=== PATIENT | male | born 1990 | race Two or more races ===

== ENCOUNTER 2016-12-25 03:04 | Emergency (ER) | payer SELFPAY ==
[~2016-12-25] VITALS: Ht 182.9 cm; Wt 83.0 kg
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
--- NOTE | 2016-12-25 03:18 | NUR ---
PT TAKEN TO RADIOLOGY DEPARTMENT
--- NOTE | 2016-12-25 03:49 | NUR ---
[employer] AT BEDSIDE FOR POLICE REPORT
[2016-12-25] MEDS ORDERED: AMOX/CLAVULANATE 875 MG TABLET ONE (04:18)
--- NOTE | 2016-12-25 04:23 | NUR ---
PT REFUSED PO MD ELEAZAR AWARE
[2016-12-25] MEDS ORDERED: AMOX/CLAVULANATE 875 MG TABLET PO ONE (04:30)
[2016-12-25 04:53] VITALS: BP 124/92
--- NOTE | 2016-12-25 04:53 | NUR ---
Patient does not wish to proceed with medical care recommended by Dr. cline. Patient given information related to possible complications, up to and including , which could occur as a result of leaving the hospital at this time. Patient verbalizes understanding of risks involved due to leaving against medical advice. Patient has signed AMA form. security at bedside to translate.
== END 2016-12-25 05:12 | disposition left against medical advice (07) ==
LOC: ER 03:06
DX: S02.2XXA Fracture of nasal bones, initial encounter for closed fracture (principal); S01.01XA Laceration without foreign body of scalp, initial encounter; F10.129 Alcohol abuse with intoxication, unspecified; Y04.8XXA Assault by other bodily force, initial encounter; Y93.89 Activity, other specified; Y92.89 Other specified places as the place of occurrence of the external cause; Y99.8 Other external cause status
CPT/HCPCS: 70450-TC; 70486-TC; A4606; A6403; Z7610